=== PATIENT | male | born 1940 | race Caucasian/White ===

== ENCOUNTER 2016-12-20 18:11 | Emergency (ER) | payer OTHER ==
[~2016-12-20] VITALS: Ht 162.6 cm; Wt 63.0 kg
[~2016-12-20 18:11] MED LIST: CYCL1TAB29 PO; GALA8TAB PO; HYDR-3366 PO; PRIM250T5 PO; VITA10002 PO
[2016-12-20 18:16] VITALS: BP 139/68; PULSE 74; RESP 18; TEMP 98.2; O2SAT 96
[2016-12-20] MEDS ORDERED: Diuretic (18:40)
[2016-12-20] MEDS ORDERED: MULTTAB67 PO (18:40)
--- NOTE | 2016-12-20 18:50 | PD ---
HPI Chief Complaint: Abnormal Results Time Seen by Provider: 18:31 Travel History International Travel<30 days: No Contact w/Intl Traveler<30days: No Traveled to known affect area: No History of Present Illness HPI 76-year-old male with history of Parkinson's disease, here for evaluation because bilateral lower extremity venous duplex today showed a nonocclusive thrombus in the left superficial femoral vein. Patient has had bilateral lower extremity edema for a month. He was seen by his primary care physician last week and had labs performed on Tuesday. Today they called in a venous duplex for his legs. He denies any leg pain. No chest pain or dyspnea. No history of DVT or PE. PFSH Past Medical History Alzheimer's Disease: Yes Cancer: No Cardiovascular Problems: No Diabetes: No Diminished Hearing: No Endocrine: No Genitourinary: No Hepatitis: No Hiatal Hernia: No Immune Disorder: No Musculoskeletal: Yes (OA NECK) Neurologic: Yes (essential tremor, DEMENTIA ) Psychiatric: No Respiratory: No Immunizations Current: Yes Thyroid Disease: No Tetanus Vaccination: Unknown Influenza Vaccination: No ?: Not Past Surgical History AICD: No Eye Surgery: Yes (cataract removal) Joint Replacement: No Neurologic Surgery: Yes (Tito in neck) Pacemaker: No Social History Alcohol Use: Yes (occassional) Tobacco Use: No Substance Use: No Allergies-Medications (Allergen,Severity, Reaction): Coded Allergies: No Known Allergies (Unverified , 12/20/16) Reported Meds & Prescriptions Reported Meds & Active Scripts Active Xarelto (Rivaroxaban) 20 Mg Tab 20 Mg PO DAILY 30 Days Xarelto (Rivaroxaban) 15 Mg Tab 15 Mg PO Q12HR 21 Days Reported [Diuretic] Multiple Vitamin 1 Tab 1 Tab PO DAILY Vitamin B-12 (Cyanocobalamin) 1,000 Mcg Tab 1,000 Mcg PO DAILY Review of Systems Except as stated in HPI: all other systems reviewed are Neg Physical Exam Narrative GENERAL: Well-developed, well-nourished, awake, alert, no apparent distress. SKIN: Focused skin assessment warm/dry. HEAD: Atraumatic. Normocephalic. EYES: Pupils equal and round. No scleral icterus. No injection or drainage. ENT: Mucous membranes pink and moist. NECK: Trachea midline. No JVD. CARDIOVASCULAR: Regular rate and rhythm. Bilateral dorsalis pedis pulses are brisk and equal. RESPIRATORY: No accessory muscle use. Clear to auscultation. Breath sounds equal bilaterally. GASTROINTESTINAL: Abdomen soft, non-tender, nondistended. MUSCULOSKELETAL: No obvious deformities. No clubbing. No cyanosis. Moderate bilateral lower extremity edema without tenderness. No signs of phlegmasia cerulea dolens. NEUROLOGICAL: Awake and alert. No obvious cranial nerve deficits. Motor grossly within normal limits. Normal speech. PSYCHIATRIC: Appropriate mood and affect; insight and judgment normal. Data Data Last Documented VS Vital Signs Date Time Temp Pulse Resp B/P (MAP) Pulse Ox O2 Delivery O2 Flow Rate FiO2 12/20/16 18:16 98.2 74 18 139/68 (91) 96 Orders Orders Basic Metabolic Panel (Bmp) (12/20/16 18:42) Complete Blood Count With Diff (12/20/16 18:42) Rivaroxaban (Xarelto) (12/20/16 19:45) Labs Laboratory Tests Test 12/20/16 18:54 White Blood Count 4.7 TH/MM3 Red Blood Count 4.33 MIL/MM3 Hemoglobin 12.5 GM/DL Hematocrit 37.8 % Mean Corpuscular Volume 87.3 FL Mean Corpuscular Hemoglobin 28.9 PG Mean Corpuscular Hemoglobin Concent 33.1 % Red Cell Distribution Width 14.0 % Platelet Count 184 TH/MM3 Mean Platelet Volume 7.6 FL Neutrophils (%) (Auto) 62.0 % Lymphocytes (%) (Auto) 25.4 % Monocytes (%) (Auto) 9.9 % Eosinophils (%) (Auto) 2.2 % Basophils (%) (Auto) 0.5 % Neutrophils # (Auto) 2.9 TH/MM3 Lymphocytes # (Auto) 1.2 TH/MM3 Monocytes # (Auto) 0.5 TH/MM3 Eosinophils # (Auto) 0.1 TH/MM3 Basophils # (Auto) 0.0 TH/MM3 CBC Comment DIFF FINAL Differential Comment Blood Urea Nitrogen 23 MG/DL Creatinine 0.70 MG/DL Random Glucose 89 MG/DL Calcium Level 9.3 MG/DL Sodium Level 136 MEQ/L Potassium Level 3.9 MEQ/L Chloride Level 102 MEQ/L Carbon Dioxide Level 27.4 MEQ/L Anion Gap 7 MEQ/L Estimat Glomerular Filtration Rate 109 ML/MIN [facility] Medical Decision Making Medical Screen Exam Complete: Yes Emergency Medical Condition: Yes Medical Record Reviewed: Yes Differential Diagnosis DVT Narrative Course Initial vital signs show heart rate 74, blood pressure 139/68, pulse ox 96% on room air, oral temp of 98.2F. On reassessment the patient's O2 saturation is 99% on room air. CBC shows WBC 4.7, hemoglobin 12.5, hematocrit 37.8, platelets 184. BMP is unremarkable. Patient is not in any respiratory distress. His lung sounds are clear and equal bilaterally. O2 saturation is 99% on room air. I do not believe he has a PE or even pulmonary edema. Creatinine is normal. Bilateral lower extremity duplex performed today shows a nonocclusive DVT in the left superficial femoral vein. This is a DVT. I discussed all anticoagulation options with the patient and the patient's granddaughter as well as patient's daughter as well as the risks and benefits of each. Plan is to start the patient on Xarelto. Case discussed with Dr. Lara who is on-call for the patient's primary care physician Dr. Crockett. Plan is to have the patient follow-up with Dr. Crockett in their office tomorrow. Patient and the patient's family were informed on when to return to the emergency department. They verbalized understanding and agreement with plan. [facility] Point of Care Internal Pos. & Neg. Controls: Passed Fecal Specimen Occult Blood: Negative Comment Heme-negative brown stool. Diagnosis Primary Impression: DVT (deep venous thrombosis) Qualified Codes: I82.412 - Acute embolism and thrombosis of left femoral vein Referrals: Primary Care Physician 1 day Additional Instructions: Follow-up with your primary care physician tomorrow. Take medications as prescribed. Return to the emergency department for worsening symptoms or any other concerns. Scripts Rivaroxaban (Xarelto) 20 Mg Tab 20 MG PO DAILY for Blood Clot Prevention for 30 Days, #30 TAB 3 Refills Prov: Fermin Vega MD 12/20/16 Rivaroxaban (Xarelto) 15 Mg Tab 15 MG PO Q12HR for Blood Clot Prevention for 21 Days, TAB 0 Refills Prov: Fermin Vega MD 12/20/16 Disposition: 01 DISCHARGE HOME Condition: Stable Fermin Vega MD Dec 20, 2016 18:50
[2016-12-20 19:04] LABS: AUTOMATED NEUTROPHIL # 2.9 TH/MM3 (1.8-7.7); BASOPHIL % 0.5 % (0.0-2.0); EOSINOPHIL # 0.1 TH/MM3 (0-0.4); EOSINOPHIL % 2.2 % (0.0-4.0); HEMATOCRIT 37.8 % (39.0-51.0); HEMO FLAGS DIFF FINAL; LYMPH % 25.4 % (9.0-44.0); LYMPHOCYTE # 1.2 TH/MM3 (1.0-4.8); MEAN CELL VOLUME 87.3 FL (80.0-100.0); MEAN CORPUSCULAR HEMOGLOBIN 28.9 PG (27.0-34.0); MEAN CORPUSCULAR HGB CONC 33.1 % (32.0-36.0); MONO % 9.9 % (0.0-8.0); PLATELET COUNT 184 TH/MM3 (150-450); RED BLOOD COUNT 4.33 MIL/MM3 (4.50-5.90); WHITE BLOOD COUNT 4.7 TH/MM3 (4.0-11.0)
[2016-12-20 19:08] LABS: POTASSIUM 3.9 MEQ/L (3.5-5.1)
[2016-12-20 19:11] LABS: BICARBONATE 27.4 MEQ/L (21.0-32.0)
[2016-12-20] MEDS ORDERED: XARE15TA PO (19:35)
[2016-12-20] MEDS ORDERED: XARE20TA PO (19:36)
[2016-12-20] MEDS ORDERED: RIVAROXABAN 15 MG TAB PO ONE (19:45)
[2016-12-20 19:48] VITALS: BP 133/66
== END 2016-12-20 20:00 | disposition home or self-care (01) ==
LOC: PHED 18:11
DX: I82.412 Acute embolism and thrombosis of left femoral vein (principal)
CPT/HCPCS: 80048; 85025; 99284